=== PATIENT | male | born 1990 | race American Indian/Alaskan Native ===

== ENCOUNTER 2017-12-09 22:07 | Emergency (ER) | payer SELFPAY ==
[2017-12-09 22:38] VITALS: BMI 32.1
[2017-12-09 22:39] VITALS: BP 155/80; RESP 18; TEMP 98.4; O2SAT 98
[2017-12-09] MEDS ORDERED: Albuterol-Ipratrop 3 mg / 0.5 (3 ml) UD IH STA (22:49)
--- NOTE | 2017-12-09 22:57 | ED PDOC ---
Arrival/HPI - General Historian: Patient - History of Present Illness Narrative History of Present Illness (Text): 12/09/17 22:50 Patient is a 26 year old male with a past medical history including asthma presenting to the emergency room stating he ran out of his albuterol inhaler earlier tonight. He has been experiencing asthma exacerbations more frequently lately, waking up 3-4 times a week at night, and has not had a chance to get to his medications refill by his PMD (Dr. Esposito). He has been using his albuterol inhaler almost daily in addition to nebulizer treatments. He feels well right now, mild chest tightness, but is scheduled to work tonight and he is nervous no t having an inhaler. Patient has no other complaints at this time. PMD: Dr. Esposito Time/Duration: Other (chronic) Symptom Onset: Other (chronic) Symptom Course: Unchanged Activities at Onset: Rest <Alli Prather - Last Filed: 12/10/17 01:28> <Washington Forrester - Last Filed: 12/10/17 02:41> - General Chief Complaint: Shortness Of Breath Time Seen by Provider: 12/09/17 22:47 Past Medical History - Provider Review Nursing Documentation Reviewed: Yes - Infectious Disease Hx of Infectious Diseases: None - Pulmonary Hx Asthma: Yes - Psychiatric Hx Substance Use: Yes <Alli Prather - Last Filed: 12/10/17 01:28> Family/Social History - Physician Review Nursing Documentation Reviewed: Yes Family/Social History: Unknown Family HX Smoking Status: Never Smoked Hx Alcohol Use: Yes Frequency of alcohol use: Socially Hx Substance Use: Yes Substance used: marijuana <Alli Prather - Last Filed: 12/10/17 01:28> Allergies/Home Meds <Alli Prather - Last Filed: 12/10/17 01:28> <Washington Forrester - Last Filed: 12/10/17 02:41> Allergies/Adverse Reactions: Allergies seafood Allergy (Uncoded 12/09/17 22:39) ANAPHYLAXIS Review of Systems - Physician Review All systems were reviewed & negative as marked: Yes - Review of Systems Constitutional: Normal. absent: Fatigue, Fevers ENT: Normal. absent: Sore Throat Respiratory: SOB. absent: Cough, Sputum Cardiovascular: Normal. absent: Chest Pain, Palpitations, GREER <Alli Prather - Last Filed: 12/10/17 01:28> Physical Exam Vital Signs Reviewed: Yes Vital Signs Temp Pulse Resp BP Pulse Ox 12/09/17 22:38 98.4 F 89 18 155/80 H 98 Temperature: Afebrile Blood Pressure: Hypertensive Pulse: Regular Respiratory Rate: Normal Appearance: Positive for: Well-Appearing, Non-Toxic, Comfortable Pain Distress: None Mental Status: Positive for: Alert and Oriented X 3 - Systems Exam Head: Present: Atraumatic, Normocephalic Extroacular Muscles: Present: EOMI Conjunctiva: Present: Normal Mouth: Present: Moist Mucous Membranes Pharnyx: Present: Normal. No: ERYTHEMA, EXUDATE, Strider Nose (External): Present: Atraumatic Nose (Internal): Present: No Active Bleeding, Moist Neck: Present: Normal Range of Motion Respiratory/Chest: Present: Clear to Auscultation, Good Air Exchange. No: Respiratory Distress, Accessory Muscle Use, Wheezes, Rales, Retracting, Rhonchi, Tachypneic Cardiovascular: Present: Regular Rate and Rhythm, Normal S1, S2. No: Murmurs Neurological: Present: GCS=15, CN II-XII Intact, Speech Normal Skin: Present: Warm, Dry, Normal Color. No: Rashes Lymphatic: No: Cervical Adenopathy Psychiatric: Present: Alert, Oriented x 3, Normal Insight, Normal Concentration <Alli Prather - Last Filed: 12/10/17 01:28> Vital Signs Temp Pulse Resp BP Pulse Ox 12/09/17 22:38 98.4 F 89 18 155/80 H 98 <Washington Forrester - Last Filed: 12/10/17 02:41> Medical Decision Making ED Course and Treatment: 12/09/17 23:01 Patient is a 26 year old male with a known hx of asthma presenting to the emergency room for a medication refill of his albuterol inhaler. Patient states he is currently feeling mildly short of breath. No wheezing appreciated on exam. Will give duoneb treatment and re-assess. 12/09/17 23:41 s/p 1 duoneb treatment - patient feels much better. Lungs CTA on exam b/l. No wheezing on exam. Will discharge patient home with prescriptions for medrol dose pack and proair. Patient is to stop smoking marijuana. Patient is to follow up with his PMD. Re-evaluation Time: 23:41 Reassessment Condition: Re-examined, Improved - Medication Orders Current Medication Orders: Albuterol/Ipratropium (Duoneb 3 Mg/0.5 Mg (3 Ml) Ud) 3 ml IH STAT STA Stop: 12/09/17 22:50 <Alli Prather - Last Filed: 12/10/17 01:28> ED Course and Treatment: Impression: Pt seen and evaluated with medical radiation therapist. Aware and agree with HPI, clinical findings, plan, and management. Pt, whose past medical history includes asthma, presented after his Albuterol inhaler ran out tonight. Patient reports some mild shortness of breath. Plan: -- Duoneb -- Reassess and disposition - Medication Orders Current Medication Orders: Discontinued Medications Albuterol/Ipratropium (Duoneb 3 Mg/0.5 Mg (3 Ml) Ud) 3 ml IH STAT STA Stop: 12/09/17 22:50 <Washington Forrester - Last Filed: 12/10/17 02:41> - PA / DOWEL INSPECTOR / Resident Statement / has reviewed & agrees with the documentation as recorded. / has examined the patient and agrees with the treatment plan. <Washington Forrester - Last Filed: 12/10/17 02:41> Disposition/Present on Arrival - Present on Arrival Any Indicators Present on Arrival: No History of DVT/PE: No History of Uncontrolled Diabetes: No Urinary Catheter: No History of Decub. Ulcer: No History Surgical Site Infection Following: None - Disposition Have Diagnosis and Disposition been Completed?: Yes Disposition Time: 23:27 Patient Plan: Discharge <Alli Prather - Last Filed: 12/10/17 01:28> - Present on Arrival Any Indicators Present on Arrival: No - Disposition Have Diagnosis and Disposition been Completed?: Yes <Washington Forrester - Last Filed: 12/10/17 02:41> - Disposition Diagnosis: Asthma Disposition: HOME/ ROUTINE Condition: GOOD Discharge Instructions (ExitCare): Asthma, Adult (DC) Additional Instructions: WESLEY ROBERTSON, thank you for letting us take care of you today. Your provider was Washington Forrester MD and you were treated for ASTHMA ATTACK. The emergency medical care you received today was directed at your acute symptoms. If you were prescribed any medication, please fill it and take as directed. It may take several days for your symptoms to resolve. Return to the Emergency Department if your symptoms worsen, do not improve, or if you have any other problems. Please contact your doctor or call one of the physicians/clinics you have been referred to that are listed on the Patient Visit Information form that is included in your discharge packet. Bring any paperwork you were given at discharge with you along with any medications you are taking to your follow up visit. Our treatment cannot replace ongoing medical care by a primary care provider outside of the emergency department. Thank you for allowing the [facility] team to be part of your care today. If you had an X-Ray or CT scan: A Radiologist will review the ED reading if any change in treatment is needed we will contact you. If you had a blood, urine, or wound culture: It will take several days for the results, if any change in treatment is needed we will contact you. If you had an STI test: It will take 48 hours for the results. Please call after 1 week if you have not heard back. Prescriptions: Albuterol Sulfate [Proair Hfa] 1 puff IH Q4H PRN #1 inh PRN Reason: Shortness Of Breath/Wheezing Methylprednisolone [Medrol Dose Pack (21 tabs)] See Taper PO DAILY #21 mg Referrals: Reddy Esposito MD [Primary Care Provider] - Follow up with primary Forms: [employer] (Faroese), WORK NOTE
[2017-12-10 01:32] VITALS: PULSE 95
== END 2017-12-09 23:45 | disposition home or self-care (01) ==
LOC: ED 22:07
DX: J45.909 Unspecified asthma, uncomplicated (principal)